=== PATIENT | male | born 1975 | race Caucasian/White ===

== ENCOUNTER → 2018-03-01 | Outpatient (CLI) | payer BC | LOC: GMAM 16:34 | PROVIDERS: ATTEND Family Medicine | DX: R10.13 Epigastric pain (principal); Z12.5 Encounter for screening for malignant neoplasm of prostate ==

== ENCOUNTER → 2018-03-04 | Outpatient (CLI) | payer BC ==
--- NOTE | 2018-03-05 08:45 | US ---
EXAM DESCRIPTION: Gall Bladder CLINICAL HISTORY: EPIGASTRIC ABDOMINAL PAIN COMPARISON: None Available. TECHNIQUE: Right upper quadrant ultrasound FINDINGS: Pancreas: Visualized portions of the pancreas are unremarkable. Bowel gas obscures some areas. Aorta/inferior vena cava: No aortic aneurysm. Normal inferior vena cava. Liver: The liver is homogeneous in texture with normal echogenicity of the hepatic parenchyma. No focal liver lesion or intrahepatic bile duct dilatation. No liver surface irregularity. Normal appearance of the portal vein and hepatic veins. Gallbladder: Gallbladder appears normal with no intraluminal stones or wall thickening. Common bile duct: Normal caliber measuring 3.9 mm. Right kidney: Renal length is 10.3 cm. Normal cortical echogenicity. Cortical thickness is normal. No hydronephrosis is seen. No renal mass or shadowing calculus. IMPRESSION: No diagnostic abnormality is identified on sonographic examination of the right upper quadrant. Electronically signed by: Bandar Palmer MD 03/05/2018 8:44 AM CDT
== END ==
LOC: US 08:21
PROVIDERS: ATTEND Family Medicine
DX: R10.13 Epigastric pain (principal)

== ENCOUNTER 2019-01-17 18:16 | Emergency (ER) | payer BC ==
[2019-01-17] MEDS ORDERED: ACETAMINOPHEN 325 MG TAB PO ONE (18:33)
[2019-01-17] MEDS ORDERED: SODIUM CHLORIDE 0.9% 1000ML 1,000 ML IVS ONE (18:33)
[2019-01-17] MEDS ORDERED: FAMOTIDINE 20 MG TAB PO ONE (18:35)
[2019-01-17] MEDS ORDERED: cefTRIAXone SODIUM 1 GM in SODIUM CHL 0.9% 50ML MIN-BAG+ 50 ML IVPB ONE (19:48)
[2019-01-17] MEDS ORDERED: metroNIDAZOLE IV PREMIX 500MG 500 MG in PREMIX BAG 1 BAG IVPB ONE (19:48)
[2019-01-17] MEDS ORDERED: CIPROFLOXACIN 500 MG TAB PO ONE (19:48)
[2019-01-17] MEDS ORDERED: cefTRIAXone SODIUM 1 GM VIAL ONE (20:00)
[2019-01-17] MEDS ORDERED: metroNIDAZOLE IV PREMIX 500MG 100 ML IVPB ONE (20:01)
[2019-01-17] MEDS ORDERED: SODIUM CHL 0.9% 50ML MIN-BAG+ 50 ML IVPB ONE (20:01)
[2019-01-17] MEDS ORDERED: IBUPROFEN 200 MG TAB PO ONE (20:15)
[2019-01-17] MEDS ORDERED: SUCRALFATE 1 GM/10 ML 1 GM UD PO ONE (20:15)
[2019-01-17] MEDS ORDERED: SODIUM CHLORIDE 0.9% 1000ML 1,000 ML ONE (21:33)
[2019-01-17] MEDS ORDERED: MORPHINE SULFATE INJ 10 MG/ML VIAL IV ONE (22:15)
--- NOTE | 2019-01-17 22:18 | ED.PDOC ---
History of Present Illness - General Chief Complaint: GI Problem Stated Complaint: Generalizesd aches, vomiting Time Seen by Provider: 01/17/19 18:25 Source: patient Exam Limitations: no limitations - History of Present Illness Initial Comments: the patient's a 43-year-old male presenting to the emergency room secondary to 3 days of extensive diarrhea. The patient has had some abdominal cramping but no point pain. He has had fevers up to 104 and has been taking Motrin and Tylenol. He has traveled to [facility] recently. He does have a mild headache. No sore throat or runny nose. No vomiting. No blood in the stool. No history of any pancreatitis or gallbladder issues. No history of any appendicitis. And again no focal pain over the gallbladder or the appendix. Timing/Duration: other - 3 days Severity: moderate Improving Factors: nothing Worsening Factors: nothing Associated Symptoms: fever/chills, loss of appetite, malaise Allergies/Adverse Reactions: Allergies NO KNOWN ALLERGY Allergy (Verified 01/17/19 18:32) Home Medications: Ambulatory Orders Ciprofloxacin [Cipro] 500 mg PO BID #14 tab 01/17/19 Famotidine [Pepcid Tab] 20 mg PO BID #30 tab 01/17/19 Metronidazole 500 mg PO TID #20 tab 01/17/19 Pantoprazole Sodium 40 mg PO DAILY 01/17/19 Review of Systems - Review of Systems Constitutional: States: fever, malaise, weakness EENTM: States: no symptoms reported Respiratory: States: no symptoms reported Cardiology: States: no symptoms reported Gastrointestinal/Abdominal: States: abdominal pain - cramping mostly, diarrhea, nausea Genitourinary: States: no symptoms reported Musculoskeletal: States: no symptoms reported Skin: States: no symptoms reported Neurological: States: no symptoms reported Endocrine: States: no symptoms reported All other Systems: No Change from Baseline Past Medical History (General) - Patient Medical History Hx Stroke: No Hx Congestive Heart Failure: No Hx Diabetes: No Hx Gastroesophageal Reflux: Yes Hx MRSA: No - Vaccination History Hx Tetanus, Diphtheria Vaccination: Yes Hx Influenza Vaccination: Yes - 2018 Hx Pneumococcal Vaccination: No - Social History Hx Tobacco Use: No Hx Alcohol Use: No Family Medical History - Family History Father Family History: No Known Living Status: Still Living Physical Exam - Physical Exam General Appearance: Alert, Ill Appearing Eye Exam: bilateral normal Ears, Nose, Throat: hearing grossly normal, normal ENT inspection - ucous membranes are mildly dry Neck: full range of motion, supple Respiratory: lungs clear, normal breath sounds, no respiratory distress, no accessory muscle use Cardiovascular/Chest: normal peripheral pulses, no edema, tachycardia Peripheral Pulses: radial,right: 2+, radial,left: 2+, dorsalis pedis,right: 2+, dorsalis pedis,left: 2+ Gastrointestinal/Abdominal: soft, other - mild diffuse discomfort to palpation. No rebound or peritoneal signs. No palpable mass. 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 Blood culture has been performed. The patient was dosed with 2 L of IV fluids along with a dose of Rocephin, metronidazole and ciprofloxacin. He'll be continued on the metronidazole and ciprofloxacin for 7 days. He needs to keep himself well hydrated. Additionally I will place the patient on Pepcid twice daily. He needs to maintain a bland diet. I do recommend that he follow-up with his primary care doctor towards the end of the week for repeat evaluation. obviously if the condition is failing to improve, additional testing will be warranted, including stool studies. ER warnings were given for any significant worsening. - Results/Orders Results/Orders: 01/17/19 18:34 Abdomen Series [RAD] Stat shows no evidence of any obstruction or free air. Chest x-ray appears grossly normal. Final read is still pending. 01/17/19 18:51 BLOOD CULTURE Stat Laboratory Results - last 24 hr 01/17/19 01/17/19 01/17/19 18:51 18:51 18:51 WBC 11.4 H RBC 5.24 Hgb 15.5 Hct 46.7 MCV 89.3 MCH 29.6 MCHC 33.2 RDW 12.9 Plt Count 226 MPV 7.3 L Absolute Neuts (auto) 10.00 H Absolute Lymphs (auto) 0.60 L Absolute Monos (auto) 0.70 Absolute Eos (auto) 0.00 Absolute Basos (auto) 0.00 Neutrophils % 87.9 H Lymphocytes % 5.4 L Monocytes % 6.5 Eosinophils % 0.0 L Basophils % 0.2 Sodium 136 Potassium 4.0 Chloride 100 L Carbon Dioxide 25 Anion Gap 15.0 BUN 17 Creatinine 1.13 BUN/Creatinine Ratio 15.0 Random Glucose 111 H Serum Osmolality 274.2 L Lactic Acid Calcium 9.2 Magnesium 1.7 L Total Bilirubin 0.4 AST 30 ALT 44 Alkaline Phosphatase 83 Serum Total Protein 7.6 Albumin 4.1 Globulin 3.5 Albumin/Globulin Ratio 1.2 Amylase 49 Lipase 30 Urine Color Urine Appearance Urine pH Ur Specific Mcdaniels Urine Protein Urine Glucose (UA) Urine Ketones Urine Blood Urine Nitrite Urine Bilirubin Urine Urobilinogen Ur Leukocyte Esterase Urine RBC Urine WBC Ur Epithelial Cells Urine Bacteria 01/17/19 01/17/19 18:51 21:38 WBC RBC Hgb Hct MCV MCH MCHC RDW Plt Count MPV Absolute Neuts (auto) Absolute Lymphs (auto) Absolute Monos (auto) Absolute Eos (auto) Absolute Basos (auto) Neutrophils % Lymphocytes % Monocytes % Eosinophils % Basophils % Sodium Potassium Chloride Carbon Dioxide Anion Gap BUN Creatinine BUN/Creatinine Ratio Random Glucose Serum Osmolality Lactic Acid 1.7 Calcium Magnesium Total Bilirubin AST ALT Alkaline Phosphatase Serum Total Protein Albumin Globulin Albumin/Globulin Ratio Amylase Lipase Urine Color Yellow Urine Appearance Clear Urine pH 5.5 Ur Specific Mcdaniels 1.020 Urine Protein Trace Urine Glucose (UA) Negative Urine Ketones Negative Urine Blood Negative Urine Nitrite Negative Urine Bilirubin Negative Urine Urobilinogen 0.2 Ur Leukocyte Esterase Negative Urine RBC 0 Urine WBC 0 Ur Epithelial Cells 1-3 Urine Bacteria 0 Departure - Departure Clinical Impression: Colitis, Gastroenteritis, Dehydration Disposition: Discharge to Home or Self Care Condition: Fair Departure Forms: ED Discharge - Pt. Copy, Patient Portal Self Enrollment Instructions: DI for Diarrhea and Traveler's Diarrhea -- Adult Diet: bland diet Activity: increase activity as tolerated Referrals: Earl Gusman MD [Primary Care Provider] - 1-5 Days Prescriptions: Ciprofloxacin [Cipro] 500 mg PO BID #14 tab Famotidine [Pepcid Tab] 20 mg PO BID #30 tab Metronidazole 500 mg PO TID #20 tab Home Medications: Ambulatory Orders Ciprofloxacin [Cipro] 500 mg PO BID #14 tab 01/17/19 Famotidine [Pepcid Tab] 20 mg PO BID #30 tab 01/17/19 Metronidazole 500 mg PO TID #20 tab 01/17/19 Pantoprazole Sodium 40 mg PO DAILY 01/17/19 Additional Instructions: the patient is a 43-year-old male presenting with what appears to be a gastroenteritis and colitis that is likely a bacterial source. Blood culture has been performed. The patient was dosed with 2 L of IV fluids along with a dose of Rocephin, metronidazole and ciprofloxacin. He'll be continued on the metronidazole and ciprofloxacin for 7 days. He needs to keep himself well hydrated. Additionally I will place the patient on Pepcid twice daily. He needs to maintain a bland diet. I do recommend that he follow-up with his primary care doctor towards the end of the week for repeat evaluation. obviously if the condition is failing to improve, additional testing will be warranted, including stool studies. Additionally the patient to start taking an [id number] probiotic or eating yogurt as his choice. ER warnings were given for any significant worsening.
[2019-01-17 23:09] VITALS: BP 107/59; TEMP 101.1; O2SAT 99
== END 2019-01-17 23:09 | disposition home or self-care (01) ==
LOC: ER 18:16
DX: K52.9 Noninfective gastroenteritis and colitis, unspecified (principal); E86.0 Dehydration; K21.9 Gastro-esophageal reflux disease without esophagitis
CPT/HCPCS: 36415; 74019; 80053; 81001; 82150; 83605; 83690; 83735; 85025; 87040; J0696; J2270; J3490; J7030; J7050